=== PATIENT | male | born 1955 | race Caucasian/White ===

== ENCOUNTER → 2023-12-31 13:51 | Outpatient (REF) | payer MEDICARE, SELFPAY | LOC: HWRAD 13:51 | PROVIDERS: ATTENDING PHYSICIAN Registered Nurse | DX: M81.0 Age-related osteoporosis without current pathological fracture (principal); Z79.52 Long term (current) use of systemic steroids; J84.9 Interstitial pulmonary disease, unspecified | CPT/HCPCS: 77080 ==

== ENCOUNTER → 2024-02-18 12:28 | Outpatient (REF) | payer MEDICARE, SELFPAY | LOC: RAD 12:28 | PROVIDERS: ATTENDING PHYSICIAN Nurse Practitioner Adult Health | DX: R60.0 Localized edema (principal) | CPT/HCPCS: 93971 ==

== ENCOUNTER → 2025-08-24 14:24 | Outpatient (REF) | payer MEDICARE, SELFPAY | LOC: HWRAD 14:24 | PROVIDERS: ATTENDING PHYSICIAN Internal Medicine Pulmonary Disease; FAMILY PHYSICIAN Registered Nurse | DX: J84.9 Interstitial pulmonary disease, unspecified (principal) | CPT/HCPCS: 71250 ==